=== PATIENT | female | born 2000 | race Caucasian/White ===

== ENCOUNTER 2020-06-06 21:51 | Emergency (ER) | payer BC, OTHER ==
[2020-06-06] MEDS ORDERED: Ketorolac 60 MG/2 ML SDV IM ONE (22:11)
[2020-06-06] MEDS ORDERED: Cyclobenzaprine 10 MG Tab PO ONE (22:12)
--- NOTE | 2020-06-06 22:25 | EDM.PDOC ---
ED HPI GENERAL MEDICAL PROBLEM - General Chief Complaint: Back Pain or Injury Stated Complaint: PAIN BETWEEN SHOULDER BLADES Time Seen by Provider: 06/06/20 22:01 Source of Information: Reports: Patient, RN Notes Reviewed History Limitations: Reports: No Limitations - History of Present Illness INITIAL COMMENTS - FREE TEXT/NARRATIVE: Patient is a 19-year-old female who presents to the emergency department with complaints of upper. Back pain. She describes a sharp pain between her shoulder blades. It is intermittent and positional. Putting her head back and rotating her upper body at the waist causes the pain. She has a history of thoracic outlet syndrome and subsequently had a partial removal of her first rib. Patient states her dad was concerned that this could be problem from her thoracic outlet syndrome, therefore he made her come to the ER although she did not want to come. She denies any numbness or tingling in her arm. States that she does have chronic nerve pain related to the thoracic outlet syndrome but this doesn't feel like her nerve pain. She is had no known injuries. She is not doing any heavy lifting. She is not taking anything for pain. Middle Back Pain Score (Numeric/FACES): 7 - Related Data Allergies Allergy/AdvReac Type Severity Reaction Status Date / Time No Known Allergies Allergy Verified 03/21/18 00:28 Home Meds: Home Meds Cyclobenzaprine [Flexeril] 5 mg PO Q6H PRN #10 tab 06/06/20 [Rx] Naproxen [Naprosyn] 500 mg PO Q12HR 5 Days #10 tab 06/06/20 [Rx] Past Medical History Cardiovascular History: Reports: Other (See Below) Psychiatric History: Reports: Anxiety, Panic Attack - Past Surgical History Cardiovascular Surgical History: Reports: Other (See Below) Musculoskeletal Surgical History: Reports: Other (See Below) Other Musculoskeletal Surgeries/Procedures:: rt rib resection Social & Family History - Family History Family Medical History: No Pertinent Family History - Tobacco Use Tobacco Use Status *Q: Never Tobacco User - Caffeine Use Caffeine Use: Reports: Coffee, Soda - Living Situation & Occupation Living situation: Reports: Single, Other (Dormitory) Occupation: Student ([employer]) ED ROS GENERAL - Review of Systems Review Of Systems: See Below Constitutional: Reports: No Symptoms HEENT: Reports: No Symptoms Respiratory: Reports: No Symptoms Cardiovascular: Reports: No Symptoms Endocrine: Reports: No Symptoms GI/Abdominal: Reports: No Symptoms : Reports: No Symptoms Musculoskeletal: Reports: Back Pain Skin: Reports: No Symptoms Neurological: Reports: No Symptoms Psychiatric: Reports: No Symptoms Hematologic/Lymphatic: Reports: No Symptoms Immunologic: Reports: No Symptoms ED EXAM, UPPER BACK/NECK PAIN - Physical Exam Exam: See Below General Appearance: Alert, WD/WN, No Apparent Distress Neck Exam: Non-Tender, Full Range of Motion, Normal Alignment, Normal Inspection Cardiovascular/Respiratory: Regular Rate, Rhythm, No M/R/G, Normal Peripheral Pulses, No JVD, Normal Breath Sounds, No Respiratory Distress Back Exam: Normal Inspection, Full Range of Motion, Paraspinal Tenderness (Right lateral to T5), Vertebral Tenderness (T5) Extremities: Normal Inspection, Normal Range of Motion, Non-Tender, No Pedal Edema, Normal Capillary Refill Neurologic: pharmacist assistant II-XII nml As Tested, No Motor/Sensory Deficits, Alert, Normal M ood/Affect, Oriented x 3 Psychiatric: Normal Affect, Normal Mood Skin Exam: Normal Color, Warm/Dry Lymphatic: No Adenopathy Course - Vital Signs Last Recorded V/S: Last Vital Signs Temp 97.8 F 06/06/20 22:00 Pulse 107 H 06/06/20 22:00 Resp 16 06/06/20 22:00 BP 133/89 06/06/20 22:00 Pulse Ox 100 06/06/20 22:00 - Orders/Labs/Meds Meds: Medications Discontinued Medications Generic Name Dose Route Start Last Admin Trade Name Normq PRN Reason Stop Dose Admin Cyclobenzaprine HCl 5 mg 06/06/20 22:12 06/06/20 22:19 Flexeril PO 06/06/20 22:13 5 mg ONETIME ONE Administration Ketorolac Tromethamine 60 mg 06/06/20 22:11 06/06/20 22:20 Toradol IM 06/06/20 22:12 60 mg ONETIME ONE Administration - Re-Assessments/Exams Free Text/Narrative Re-Assessment/Exam: Patient is a 19-year-old female presenting to the emergency department with complaints of intermittent upper back pain. She describes it as a sharp pain when she makes certain movements. The pain is not present at all times. On exam, she has tenderness to palpation over the L5 vertebrae as well as the paraspinous muscles on the right lateral to L5. Patient has a history of thoracic outlet syndrome with partial rib removal. She has no pain, numbness, or tingling in the area where the rib would been removed. She has no pain or numbness in her arms. She is not injured her back in any way and has not been doing any heavy lifting. Discussed possibility of x-ray, however this is likely to not show anything as she has not injured the area. We will treat her with an injection of Toradol as well as Flexeril. Recommend intermittent heat to the area. I will send a prescription for Flexeril and Naprosyn to [facility] as it has only pharmacy that is open tomorrow. Melinda return precautions. If she continues to have pain early next week, she should follow-up with her primary care provider Leighann Veliz. Discharge instructions as documented. Departure - Departure Time of Disposition: 22:27 Disposition: Home, Self-Care 01 Condition: Good Clinical Impression: Back pain Qualifiers: Back pain location: thoracic back pain Chronicity: acute Back pain laterality: unspecified Qualified Code(s): M54.6 - Pain in thoracic spine - Discharge Information *PRESCRIPTION DRUG MONITORING PROGRAM REVIEWED*: No *COPY OF PRESCRIPTION DRUG MONITORING REPORT IN PATIENT CEDRICK: No Prescriptions: Cyclobenzaprine [Flexeril] 5 mg PO Q6H PRN #10 tab PRN Reason: Muscle Spasm Naproxen [Naprosyn] 500 mg PO Q12HR 5 Days #10 tab Instructions: Acute Back Pain, Adult Referrals: Leighann Veliz PA-C [Ordering Only Provider] - Forms: ED Department Discharge Additional Instructions: You were seen in the emergency department today for intermittent upper back pain worse with certain movements. On examination, you are tender over and to the right lateral side of your T5 vertebrae. Exam findings and your history are consistent with a diagnosis of musculoskeletal back pain. This could be cause by a strained a muscle or muscle spasms. Fortunately, the pain you are exhibiting is not consistent with thoracic outlet syndrome. While in the ER, you received an injection of Toradol as well as a dose of Flexeril which is a muscle relaxer. A prescription for Naprosyn and Flexeril has been sent to [facility]. They are open tomorrow from noon to 4. Take these medications as prescribed. Recommend intermittent heat to the area and stretching exercises. If you should experience any new or worsening symptoms, please not hesitate to return to the emergency department for reevaluation. If you continue to have discomfort after conclusion of the treatment, recommend follow-up with your primary care provider. Sepsis Event Note (ED) - Evaluation Sepsis Screening Result: No Definite Risk
== END 2020-06-06 22:44 | disposition home or self-care (01) ==
LOC: JD.ED 21:51
DX: M54.6 Pain in thoracic spine (principal)
CPT/HCPCS: 96372; 99283; A9270; J1885